=== PATIENT | male | born 1980 ===

== ENCOUNTER 2017-02-08 19:23 | Emergency (ER) | payer OTHER ==
[2017-02-08] MEDS ORDERED: LIDOCAINE BUFFERED 1% 50 ML SOL SC ONE (19:53)
[2017-02-08] MEDS ORDERED: LIDOCAINE HCL 1% MPF SOL ONE (19:54)
[2017-02-08] MEDS ORDERED: TDAP VACCINE 0.5 ML SUS IM ONE ×2 (20:00→21:54)
[2017-02-09 02:49] VITALS: RESP 16; TEMP 97.8
[2017-02-09 03:01] VITALS: BP 118/84; PULSE 80; O2SAT 97
[2017-02-09] MEDS ORDERED: LIDOCAINE HCL 1% MDV SOL SC ONE (21:30)
== END 2017-02-08 22:21 | disposition home or self-care (01) ==
LOC: ED 19:23
DX: S61.022A Laceration with foreign body of left thumb without damage to nail, initial encounter (principal); W25.XXXA Contact with sharp glass, initial encounter; W45.8XXA Other foreign body or object entering through skin, initial encounter
CPT/HCPCS: 12002; 90715; J2001; 90471; 99285; G0168; A6402